=== PATIENT | male | born 1985 | race Caucasian/White ===

== ENCOUNTER 2016-06-09 07:43 | Emergency (ER) | payer OTHER ==
[2016-06-09 08:59] LABS: HEMOGLOBIN 14.1 gm/dl (14.0-17.5); RED BLOOD COUNT 4.64 M/UL (4.20-5.50); WHITE BLOOD COUNT 8.7 K/UL (4.5-11.0)
[2016-06-09 09:19] LABS: BUN/CREATININE RATIO 13 (0-10)
== END 2016-06-09 12:17 | disposition home or self-care (01) ==
LOC: ER1 07:43
PROVIDERS: Emergency Medicine
DX: S47.2XXA Crushing injury of left shoulder and upper arm, initial encounter (principal); S42.402A Unspecified fracture of lower end of left humerus, initial encounter for closed fracture; T79.6XXA Traumatic ischemia of muscle, initial encounter; W20.8XXA Other cause of strike by thrown, projected or falling object, initial encounter; F17.200 Nicotine dependence, unspecified, uncomplicated
CPT/HCPCS: 36415; 73030; 73060; 80048; 82550; 82962; 83874; 85025; 93971; 96361; 96374; 99284; J1815